=== PATIENT | female | born 1985 | race Asian ===

== ENCOUNTER → 2016-12-11 | Outpatient (CLI) | payer BC ==
[~2016-12-11] MED LIST: CALCIUM CARBON650 M2; FERRO-TIME325 MG PO; IBU600 MG PO; LEVEMIR100 U/ML SQ; PERCOCET 325 MG1 TA2 PO; PRENATAL
== END ==
LOC: SUN.DIA 09:30
DX: O24.419 Gestational diabetes mellitus in pregnancy, unspecified control (principal); Z3A.29 29 weeks gestation of pregnancy; Z71.3 Dietary counseling and surveillance
CPT/HCPCS: G0108

== ENCOUNTER → 2016-12-17 | Outpatient (CLI) | payer BC | LOC: SUN.DIA 08:52 | DX: O24.419 Gestational diabetes mellitus in pregnancy, unspecified control (principal); Z3A.30 30 weeks gestation of pregnancy; Z71.3 Dietary counseling and surveillance | CPT/HCPCS: G0108 ==

== ENCOUNTER 2017-01-26 14:09 | Inpatient (IN) | payer BC ==
[~2017-01-26] VITALS: Ht 149.9 cm; Wt 67.7 kg
[2017-02-23] VITALS (58 sets, daily range): BP systolic 87–152; BP diastolic 48–97; PULSE 69–108; TEMP 97.2–99.4
[2017-02-23] MEDS ORDERED: CALCIUM CARBON650 M2 (07:39)
[2017-02-23] MEDS ORDERED: PRENATAL (07:39)
[2017-02-23] MEDS ORDERED: LEVEMIR100 U/ML SQ (07:39)
[2017-02-23 08:26] LABS: BASO % 0.3 % (0.0-2.0); EOS % 0.5 % (0-4.0); GRAN # 5.8 (1.4-6.5); GRAN % 67.2 % (42.2-75.2); HEMATOCRIT 41.6 % (37.0-47.0); HEMOGLOBIN 14.2 g/dl (12.5-16.0); LYMPH # 2.2 (1.2-3.4); LYMPH % 25.2 % (20.0-51.0); MEAN CELL VOLUME 99 fl (80.0-100.0); MEAN CORPUSCULAR HEMOGLOBIN 34 pg (27.0-31.0); MEAN CORPUSCULAR HGB CONC 34 g/dl (33.0-37.0); MEAN PLATELET VOLUME 9.5 fl (7.4-10.4); MONO # 0.5 (0.1-0.6); MONO % 5.9 % (1.7-9.3); PLATELET COUNT 176 K/mm3 (130-400); REDCELL DISTRIBUTION WIDTH-CV 12.1 % (11.5-14.5); WHITE BLOOD COUNT 8.7 K/mm3 (4.8-10.8)
[2017-02-24] VITALS (896 sets, daily range): BP systolic 62–137; BP diastolic 30–93; PULSE 61–115; TEMP 98.3–99.4; O2SAT 86–100
[2017-02-24 01:27] LABS: HEMATOCRIT 27.6 % (37.0-47.0); HEMOGLOBIN 9.1 g/dl (12.5-16.0)
[2017-02-24 04:29] LABS: BASO % 0.3 % (0.0-2.0); GRAN # 13.7 (1.4-6.5); GRAN % 87.2 % (42.2-75.2); LYMPH # 0.8 (1.2-3.4); LYMPH % 5.3 % (20.0-51.0); MEAN CELL VOLUME 101 fl (80.0-100.0); MEAN CORPUSCULAR HGB CONC 33 g/dl (33.0-37.0); MEAN PLATELET VOLUME 9.5 fl (7.4-10.4); MONO % 6.4 % (1.7-9.3); PLATELET COUNT 107 K/mm3 (130-400); RED BLOOD COUNT 2.22 M/mm3 (4.10-5.30); REDCELL DISTRIBUTION WIDTH-CV 14.3 % (11.5-14.5); WHITE BLOOD COUNT 15.7 K/mm3 (4.8-10.8)
[2017-02-24 04:31] LABS: HEMATOCRIT 22.3 % (37.0-47.0); HEMOGLOBIN 7.4 g/dl (12.5-16.0); MEAN CORPUSCULAR HEMOGLOBIN 33 pg (27.0-31.0)
[2017-02-24 04:39] LABS: INR 1.4 (0.8-3.0); PARTIAL THROMBOPLASTIN TIME 41.5 SECONDS (26.0-37.0); PROTHROMBIN TIME 15.7 SECONDS (9.7-12.8)
[2017-02-24 04:54] LABS: ADJUSTED CALCIUM 7.9 mg/dL (8.4-10.2); ALBUMIN 1.2 gm/dL (3.5-5.0); BILIRUBIN,TOTAL 0.5 mg/dL (0.0-1.0); CREATININE, serum 0.5 mg/dL (0.52-1.25); POTASSIUM 6.3 mmol/L (3.4-5.0); TOTAL PROTEIN 2.7 gm/dL (6.4-8.2)
[2017-02-24 04:55] LABS: CALCIUM 5.7 mg/dL (8.4-10.2)
[2017-02-24 05:52] LABS: BASO % 0.2 % (0.0-2.0); GRAN # 12.8 (1.4-6.5); GRAN % 82.5 % (42.2-75.2); HEMATOCRIT 23.4 % (37.0-47.0); HEMOGLOBIN 7.9 g/dl (12.5-16.0); LYMPH # 1.3 (1.2-3.4); LYMPH % 8.5 % (20.0-51.0); MEAN CELL VOLUME 96 fl (80.0-100.0); MEAN CORPUSCULAR HEMOGLOBIN 32 pg (27.0-31.0); MEAN CORPUSCULAR HGB CONC 34 g/dl (33.0-37.0); MEAN PLATELET VOLUME 9.7 fl (7.4-10.4); MONO # 1.2 (0.1-0.6); PLATELET COUNT 80 K/mm3 (130-400); RED BLOOD COUNT 2.44 M/mm3 (4.10-5.30); REDCELL DISTRIBUTION WIDTH-CV 14.7 % (11.5-14.5); WHITE BLOOD COUNT 15.5 K/mm3 (4.8-10.8)
[2017-02-24 06:11] LABS: ALBUMIN 1.2 gm/dL (3.5-5.0); BILIRUBIN,TOTAL 0.8 mg/dL (0.0-1.0); CREATININE, serum 0.43 mg/dL (0.52-1.25); TOTAL PROTEIN 2.6 gm/dL (6.4-8.2)
[2017-02-24 06:12] LABS: CALCIUM 5.8 mg/dL (8.4-10.2)
[2017-02-24 09:45] LABS: MEAN CORPUSCULAR HGB CONC 36 g/dl (33.0-37.0); MEAN PLATELET VOLUME 9.8 fl (7.4-10.4); PLATELET COUNT 76 K/mm3 (130-400); RED BLOOD COUNT 1.74 M/mm3 (4.10-5.30); REDCELL DISTRIBUTION WIDTH-CV 15.4 % (11.5-14.5); WHITE BLOOD COUNT 9.9 K/mm3 (4.8-10.8)
[2017-02-24 09:53] LABS: HEMATOCRIT 15.7 % (37.0-47.0); HEMOGLOBIN 5.7 g/dl (12.5-16.0); MEAN CELL VOLUME 90 fl (80.0-100.0); MEAN CORPUSCULAR HEMOGLOBIN 33 pg (27.0-31.0)
[2017-02-24 09:54] LABS: ADD PATHOLOGY DIFF REVIEW NO; ADJUSTED CALCIUM 7.9 mg/dL (8.4-10.2); ALBUMIN 1.5 gm/dL (3.5-5.0); BILIRUBIN,TOTAL 0.6 mg/dL (0.0-1.0); CREATININE, serum 0.39 mg/dL (0.52-1.25); INR 1.2 (0.8-3.0); MAGNESIUM 1.2 mg/dL (1.6-2.3); POTASSIUM 3.5 mmol/L (3.4-5.0); PROTHROMBIN TIME 13.7 SECONDS (9.7-12.8); TOTAL PROTEIN 3.2 gm/dL (6.4-8.2)
[2017-02-24 09:55] LABS: CALCIUM 5.9 mg/dL (8.4-10.2); PARTIAL THROMBOPLASTIN TIME 34.1 SECONDS (26.0-37.0)
[2017-02-24 10:29] LABS: BAND 20 % (0-10); NEUTROPHILS 58 % (42.0-75.2); PLATELET ESTIMATE DECREASED (NORMAL); TOTAL CELLS COUNTED 100
[2017-02-24 18:08] LABS: MEAN CELL VOLUME 90 fl (80.0-100.0); MEAN CORPUSCULAR HGB CONC 35 g/dl (33.0-37.0); MEAN PLATELET VOLUME 9.5 fl (7.4-10.4); PLATELET COUNT 83 K/mm3 (130-400); REDCELL DISTRIBUTION WIDTH-CV 14.9 % (11.5-14.5); WHITE BLOOD COUNT 11.4 K/mm3 (4.8-10.8)
[2017-02-24 18:09] LABS: HEMATOCRIT 22.4 % (37.0-47.0); HEMOGLOBIN 7.9 g/dl (12.5-16.0); MEAN CORPUSCULAR HEMOGLOBIN 32 pg (27.0-31.0)
[2017-02-24 18:20] LABS: ALBUMIN 1.9 gm/dL (3.5-5.0); BILIRUBIN,TOTAL 0.7 mg/dL (0.0-1.0); CALCIUM 7.3 mg/dL (8.4-10.2); CREATININE, serum 0.49 mg/dL (0.52-1.25); POTASSIUM 3.3 mmol/L (3.4-5.0); TOTAL PROTEIN 3.9 gm/dL (6.4-8.2)
[2017-02-24 22:40] LABS: BASO % 0.2 % (0.0-2.0); GRAN # 7.5 (1.4-6.5); GRAN % 70.9 % (42.2-75.2); LYMPH % 19.2 % (20.0-51.0); MEAN CELL VOLUME 90 fl (80.0-100.0); MEAN CORPUSCULAR HGB CONC 35 g/dl (33.0-37.0); MONO % 9.3 % (1.7-9.3); PLATELET COUNT 71 K/mm3 (130-400); RED BLOOD COUNT 2.12 M/mm3 (4.10-5.30); WHITE BLOOD COUNT 10.5 K/mm3 (4.8-10.8)
[2017-02-24 22:41] LABS: HEMOGLOBIN 6.7 g/dl (12.5-16.0); MEAN CORPUSCULAR HEMOGLOBIN 32 pg (27.0-31.0)
[2017-02-25] VITALS (559 sets, daily range): BP systolic 96–116; BP diastolic 47–68; PULSE 80–107; TEMP 98.7–99.9; O2SAT 66–100
[2017-02-25 05:04] LABS: BASO % 0.2 % (0.0-2.0); EOS % 0.1 % (0-4.0); GRAN # 9.4 (1.4-6.5); GRAN % 78.5 % (42.2-75.2); HEMOGLOBIN 9.1 g/dl (12.5-16.0); LYMPH # 1.3 (1.2-3.4); MEAN CELL VOLUME 90 fl (80.0-100.0); MEAN CORPUSCULAR HEMOGLOBIN 31 pg (27.0-31.0); MEAN CORPUSCULAR HGB CONC 35 g/dl (33.0-37.0); MEAN PLATELET VOLUME 9.2 fl (7.4-10.4); MONO # 1.2 (0.1-0.6); MONO % 9.8 % (1.7-9.3); PLATELET COUNT 72 K/mm3 (130-400); REDCELL DISTRIBUTION WIDTH-CV 14.7 % (11.5-14.5)
[2017-02-25 05:15] LABS: PROTHROMBIN TIME 11.3 SECONDS (9.7-12.8)
[2017-02-25 05:17] LABS: ADJUSTED CALCIUM 8.6 mg/dL (8.4-10.2); ALBUMIN 1.8 gm/dL (3.5-5.0); BILIRUBIN,TOTAL 0.7 mg/dL (0.0-1.0); CALCIUM 6.8 mg/dL (8.4-10.2); CREATININE, serum 0.44 mg/dL (0.52-1.25); MAGNESIUM 1.5 mg/dL (1.6-2.3); PARTIAL THROMBOPLASTIN TIME 31.5 SECONDS (26.0-37.0); POTASSIUM 3.3 mmol/L (3.4-5.0); TOTAL PROTEIN 3.9 gm/dL (6.4-8.2)
[2017-02-26 00:50] VITALS: BP 99/66; PULSE 87; TEMP 98
[2017-02-26 04:01] VITALS: BP 105/62; PULSE 72; TEMP 98.1
[2017-02-26 07:30] VITALS: BP 102/58; PULSE 80; TEMP 98.3
[2017-02-26 08:05] LABS: BASO % 0.2 % (0.0-2.0); EOS # 0.1 (0.0-0.7); EOS % 0.6 % (0-4.0); GRAN # 9.3 (1.4-6.5); GRAN % 72.5 % (42.2-75.2); LYMPH # 2.5 (1.2-3.4); LYMPH % 19.1 % (20.0-51.0); MEAN CELL VOLUME 92 fl (80.0-100.0); MEAN CORPUSCULAR HGB CONC 34 g/dl (33.0-37.0); MEAN PLATELET VOLUME 9.3 fl (7.4-10.4); MONO # 0.9 (0.1-0.6); MONO % 6.8 % (1.7-9.3); PLATELET COUNT 109 K/mm3 (130-400); RED BLOOD COUNT 2.91 M/mm3 (4.10-5.30); REDCELL DISTRIBUTION WIDTH-CV 15.6 % (11.5-14.5); WHITE BLOOD COUNT 12.9 K/mm3 (4.8-10.8)
[2017-02-26 08:06] LABS: HEMATOCRIT 26.7 % (37.0-47.0); HEMOGLOBIN 9.1 g/dl (12.5-16.0); MEAN CORPUSCULAR HEMOGLOBIN 31 pg (27.0-31.0)
[2017-02-26 08:11] LABS: ADJUSTED CALCIUM 8.8 mg/dL (8.4-10.2); ALBUMIN 2.3 gm/dL (3.5-5.0); BILIRUBIN,TOTAL 0.5 mg/dL (0.0-1.0); CALCIUM 7.4 mg/dL (8.4-10.2); CREATININE, serum 0.48 mg/dL (0.52-1.25); POTASSIUM 3.5 mmol/L (3.4-5.0); TOTAL PROTEIN 4.8 gm/dL (6.4-8.2)
[2017-02-26 12:20] VITALS: BP 104/65; PULSE 77
[2017-02-26 16:45] VITALS: BP 107/62; PULSE 72; TEMP 98.4
[2017-02-26 21:00] VITALS: BP 124/66; PULSE 110; TEMP 98.2
[2017-02-27 08:15] VITALS: BP 109/63; PULSE 73; TEMP 98.3
[2017-02-27] MEDS ORDERED: PERCOCET 325 MG1 TA2 PO (09:55)
[2017-02-27] MEDS ORDERED: IBU600 MG PO (09:55)
[2017-02-27] MEDS ORDERED: FERRO-TIME325 MG PO (09:59)
[2017-02-27 12:57] LABS: BASO % 0.2 % (0.0-2.0); EOS % 0.4 % (0-4.0); GRAN # 6.9 (1.4-6.5); GRAN % 73.6 % (42.2-75.2); HEMATOCRIT 30.7 % (37.0-47.0); HEMOGLOBIN 10.5 g/dl (12.5-16.0); LYMPH # 1.8 (1.2-3.4); LYMPH % 19.2 % (20.0-51.0); MEAN CELL VOLUME 93 fl (80.0-100.0); MEAN CORPUSCULAR HEMOGLOBIN 32 pg (27.0-31.0); MEAN CORPUSCULAR HGB CONC 34 g/dl (33.0-37.0); MONO # 0.5 (0.1-0.6); MONO % 5.5 % (1.7-9.3); PLATELET COUNT 184 K/mm3 (130-400); RED BLOOD COUNT 3.32 M/mm3 (4.10-5.30); REDCELL DISTRIBUTION WIDTH-CV 14.9 % (11.5-14.5); WHITE BLOOD COUNT 9.4 K/mm3 (4.8-10.8)
[2017-02-27 13:09] LABS: ALBUMIN 2.9 gm/dL (3.5-5.0); BILIRUBIN,TOTAL 0.6 mg/dL (0.0-1.0); CALCIUM 9.1 mg/dL (8.4-10.2); CREATININE, serum 0.44 mg/dL (0.52-1.25); TOTAL PROTEIN 5.9 gm/dL (6.4-8.2)
[2017-02-27 16:10] VITALS: BP 128/67; PULSE 81; TEMP 98.1
[2017-02-27 19:55] VITALS: BP 126/74; PULSE 68; TEMP 98.1
[2017-02-28 08:00] VITALS: BP 111/67; PULSE 70; TEMP 98.2
== END 2017-02-28 14:30 | disposition home or self-care (01) | DRG 765 ==
LOC: LDR 02-23 07:10 → ICU 02-23 07:10 → LDR 02-23 07:43 → ICU 02-24 07:50 → OB 02-25 10:10 → EDSTATUS 02-27 07:28 → LDR 02-27 07:29 → LDRO 02-27 14:08 → OB 02-28 14:30
PROVIDERS: Internal Medicine Cardiovascular Disease; Obstetrics & Gynecology
PROC: 3E033VJ Introduction of Other Hormone into Peripheral Vein, Percutaneous Approach (ICD-10-PCS; 2017-02-23)
PROC: 10D00Z1 Extraction of Products of Conception, Low, Open Approach (ICD-10-PCS; principal; 2017-02-24)
PROC: 0UQC0ZZ Repair Cervix, Open Approach (ICD-10-PCS; 2017-02-24)
PROC: 0UT90ZZ Resection of Uterus, Open Approach (ICD-10-PCS; 2017-02-24)
PROC: 0W3R7ZZ Control Bleeding in Genitourinary Tract, Via Natural or Artificial Opening (ICD-10-PCS; 2017-02-24)
PROC: 02HV33Z Insertion of Infusion Device into Superior Vena Cava, Percutaneous Approach (ICD-10-PCS; 2017-02-24)
DX: O24.424 Gestational diabetes mellitus in childbirth, insulin controlled (principal); O72.1 Other immediate postpartum hemorrhage; O71.3 Obstetric laceration of cervix; D62 Acute posthemorrhagic anemia; E87.1 Hypo-osmolality and hyponatremia; O99.285 Endocrine, nutritional and metabolic diseases complicating the puerperium; E87.6 Hypokalemia; E83.42 Hypomagnesemia; O43.892 Other placental disorders, second trimester; O62.1 Secondary uterine inertia; O99.02 Anemia complicating childbirth; Z3A.39 39 weeks gestation of pregnancy; Z37.0 Single live birth
CPT/HCPCS: 99223; C1751; C1894; J0690; J1644; J1815; J1885; J1940; J2175; J2210; J2270; J2370; J2400; J2405; J2590; J2704; J2795; J3010; J3475; J3480; J7030; J7120; P9016

== ENCOUNTER → 2017-02-03 | Outpatient (CLI) | payer BC | LOC: SUN.DIA 12:59 | DX: O24.414 Gestational diabetes mellitus in pregnancy, insulin controlled (principal); Z3A.37 37 weeks gestation of pregnancy; Z71.3 Dietary counseling and surveillance | CPT/HCPCS: G0108 ==